=== PATIENT | female | born 1960 | race Caucasian/White ===

== ENCOUNTER 2022-04-25 08:54 | Outpatient (CLI) | payer MEDICARE, BC, SELFPAY ==
[2022-04-25 14:09] LABS: Hematocrit 40.3 % (33.0-51.0); Hemoglobin* 13.7 gm/dL (12.0-16.0); Mean Corpuscular HGB Conc 34 gm/dL (32-36); Mean Corpuscular Hemoglobin 31 pg (26-34); Mean Corpuscular Volume 91 fL (80-100); Platelet Count* 311 K/uL (140-440); Red Blood Count 4.42 m/uL (4.00-5.20); White Blood Count* 4.39 K/uL (4.50-11.00)
[2022-04-25 14:17] LABS: Slide Review Reflex No
[2022-04-25 14:31] LABS: Chloride* 105 mmol/L (96-114)
[2022-04-25 14:32] LABS: Sodium* 139 mmol/L (135-149)
[2022-04-25 14:34] LABS: Blood Urea Nitrogen* 20 mg/dL (7-30); Carbon Dioxide* 27 mmol/L (20-32); Cholesterol* 149 mg/dL (90-199); Creatinine* 0.9 mg/dL (0.5-1.5); Estimated Glomerular Filt Rate 72 ml/min
[2022-04-25 14:35] LABS: Calcium* 9.1 mg/dL (8.4-10.6); Glucose* 100 mg/dL (60-115); HDL Cholesterol* 77 mg/dL (>=50); LDL Cholesterol Calculated 62 mg/dL (<100); Triglycerides* 49 mg/dL (40-149)
[2022-04-25 15:07] LABS: Vitamin D 25 Hydroxy* 62 ng/mL (30-80)
== END 2022-04-25 08:55 | disposition home or self-care (01) ==
PROVIDERS: PCP Family Medicine; Visit Provider Family Medicine
DX: E55.9 Vitamin D deficiency, unspecified (principal); E78.5 Hyperlipidemia, unspecified; R60.9 Edema, unspecified
CPT/HCPCS: 80048; 80061; 82306; 85027

== ENCOUNTER 2023-06-10 08:56 | Outpatient (CLI) | payer MEDICARE, BC, SELFPAY | END 2023-06-10 08:57 | disposition home or self-care (01) | PROVIDERS: PCP Family Medicine; Visit Provider Family Medicine | DX: E55.9 Vitamin D deficiency, unspecified (principal); R60.9 Edema, unspecified; Z13.6 Encounter for screening for cardiovascular disorders | CPT/HCPCS: 80048; 80061; 85025 ==

== ENCOUNTER 2023-09-09 10:02 | Outpatient (CLI) | payer MEDICARE, BC, SELFPAY ==
--- NOTE | 2023-09-09 10:15 | CRLHL7_ITS ---
For Patients: As a result of the Century Cures Act, medical imaging exams and procedure reports are released immediately into your electronic medical record. You may view this report before your referring provider. If you have questions, please contact your health care provider. BILATERAL SCREENING MAMMOGRAM WITH COMPUTER-AIDED DETECTION AND TOMOSYNTHESIS TECHNIQUE: CC and MLO views were obtained. These mammographic images have been obtained using full-field digital technique. These mammographic images were interpreted with the benefit of computer-aided detection. Breast Tomosynthesis was used in this interpretation. COMPARISON FILM: 09/11/21, 04/21/19, 04/17/18. FINDINGS: The breasts are heterogeneously dense, which may obscure small masses IMPRESSION: There is no radiographic evidence for malignancy. ASSESSMENT: BI-RADS Category 1: Negative RECOMMENDATION: Routine screening mammogram in 1 year. A lay language report of this examination will be provided to the patient. Stefan Gay M.D. Diagnostic Radiologist [email or web address] DINAH/dimitri / be/Dictated by: Stefan Gay MD @ 09/09/2023 12:33:00 PM (Electronically Signed)
== END 2023-09-09 10:03 | disposition home or self-care (01) ==
PROVIDERS: PCP Family Medicine; Visit Provider Family Medicine
DX: Z12.31 Encounter for screening mammogram for malignant neoplasm of breast (principal); R92.2 Inconclusive mammogram
CPT/HCPCS: 77063; 77067

== ENCOUNTER 2024-06-11 10:16 | Outpatient (CLI) | payer MEDICARE, BC, SELFPAY ==
--- OUTSIDE RECORDS SUMMARY | 2024-06-11 10:26 | XMS_ITS | Clinical Summary ---
Author Organization [facility] Address [place], [place] [address] Care Team Providers Care Payment Collector Name Role Phone Stefan De La Garza MD Primary Care Provider + Allergies Active Allergy Reactions Criticality Noted Date Comments Iodinated Contrast Media Nausea And Vomiting Medium 06/01/2007 During cancer treatment pt had excessive amounts of dye and began vomitting. Penicillins Rash 08/31/2005 Medications Medication Sig Dispensed Refills Start Date End Date Status POLYETHYLENE GLYCOL 3350 17 GRAM ORAL POWDER PACKET 1 TAKE 17GM IN 8OZ WATER DAILY 1 3 06/01/2009 Active multivitamin (MVI) tablet Take 1 tablet by mouth once daily. Active fluticasone (50 mcg per actuation) nasal solution (FLONASE)Indications: Acute maxillary sinusitis, unspecified INHALE 2 SPRAYS INTO BOTH NOSTRILS ONCE DAILY 16 g 2 07/15/2018 Active albuterol HFA (PROAIR HFA) 90 mcg/actuation inhalerIndications:Re active airway disease, mild intermittent, with acute exacerbation Inhale 2 Puffs by mouth 4 times daily. 1 Inhaler 5 11/26/2018 Active inhalational spacing deviceIndications:Inf luenza A For home use. 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 Pelvic Exoneration, Ileal Bladder, Chemo, XRT Recurrent Small Bowel Obstuction 12/14/2006 Family history of colon cancer Resolved Problems Problem Noted Date Diagnosed Date Resolved Date UTI (lower urinary tract infection) 05/14/2014 12/11/2015 SBO (small bowel obstruction) 05/12/2014 12/11/2015 Cholecystitis chronic 09/13/20122012 SBO (small bowel obstruction) 09/11/2012 09/11/2012 Counseling for marital and p artner problems, unspecified 09/29/2007 08/02/2013 Counseling for parent-child problem, unspecified 09/29/2007 08/02/2013 Sepsis(995.91) 06/06/2007 08/02/2013 Overview (06/06/2007): secondary to pneumonia +- uti Urinary tract infection, site not specified 06/03/2007 08/02/2013 Constipation 12/14/2006 12/11/2015 Peripheral Neuropathy due to Chemo 12/14/2006 12/11/2015 Edema 12/12/2006 08/02/2013 Overview (12/12/2006): Peripheral Immunizations Name Administration Dates Next Due Influenza, IIV3 (Age >=3 years) 07/14/2013 Tdap 07/14/2013 Family History Medical History Relation Name Comments Cancer Brother 2 Jonathan Lung Alcohol/Drug Father Cancer-colon Father Heart Disease Father Hypertension Father Arthritis Maternal Grandmother Stroke Maternal Grandmother Osteoporosis Mother Cancer-breast Sister Relation Name Status Comments Brother 1 Alive X3 Brother 2 Jonathan Brother 3 Alive Daughter Father Maternal Grandfather Maternal Grandmother Mother Alive Paternal Grandfather Paternal Grandmother Sister Alive X5 Son 1 Alive Son 2 Alive Social History Tobacco Use Types Packs/Day Years Used Date Smoking Tobacco: Never Smokeless Tobacco: Never Tobacco Cessation:Counseling Given: Yes Alcohol Use Standard Drinks/Week Comments Yes 0 (1 standard drink = 0.6 oz pur e alcohol) wine once a week PHQ-2 Answer Date Recorded PHQ-2 Score 0 11/29/2018 Sex and Gender Information Value Date Recorded Sex Assigned at Not on file Gender Identity Not on file Sexual Orientation Not on file Obstetrics History Para Term AB IAB SAB Ectopic Multiple Livin g Live Births 3 2 2 1 1 2 Date Outcome GA Total Labor Labor/2nd/3rd Weight Sex Type Anes PTL Melody A1 A5 Name Clin Term Term SAB Last Filed Vital Signs Vital Sign Reading Time Taken Comments Blood Pressure 108/58 11/28/2018 11:24 AM STABILIZER OPERATOR Pulse 78 11/28/2018 11:24 AM STABILIZER OPERATOR Temperature 36.9 ??C (98.5 ??F) 11/28/2018 11:[address] Respiratory Rate 16 11/28/2018 11:24 AM STABILIZER OPERATOR Oxygen Saturation 96% 11/28/2018 11:24 AM STABILIZER OPERATOR Inhaled Oxygen Concentration - - Weight 74.8 kg (165 lb) 11/28/2018 11:24 AM STABILIZER OPERATOR Height 172.7 cm (5' 8) 11/28/2018 11:24 AM STABILIZER OPERATOR Body Mass Index 25.09 11/28/2018 11:24 AM STABILIZER OPERATOR Plan of Treatment Health Maintenance Due Date Last Done Comments Zoster (shingles) series for age 50+ (1 of 2) 2008 BMI (ht and wt on same day) for age 18+ 11/29/2019 11/28/2018, 11/26/2018, 05/14/2018, Additional history exists Depression screening for age 12+ 11/29/2019 11/28/2018, 11/26/2018, 05/16/2018, Additional history exists Mammogram for age 45-75 04/21/2020 04/21/20 19, 04/24/2018, 04/17/2018, Additional history exists Lipids for age 45-75 12/08/2020 12/09/2015, 07/14/20 13 Tetanus booster 07/14/2023 07/14/2013 DEXA/DXA scan for age 65+ 2023 Pneumococcal series for age 65+ (1 of 1 - PCV) 2023 COVID-19 vaccine series ( - 2022-24 season) 2024 Influenza for age 65+ 05/31/2024 07/14/2013 Colonoscopy through age 75 06/27/2027 06/27/2017 HIV for age 15-65 Completed 07/11/2011 Hepatitis C screening for ag e 18-79 Completed 07/11/2011 Tdap Completed 07/14/2013 (Comp leted outside of [facility]), 07/14/2013 Procedures Procedure Name Priority Date/Time Associated Diagnosis Comments XR MAMMO BILAT SCREENING Routine 04/21/2019 1:09 PM CDT Breast screening, unspecified COLONOSCOPY 06/27/2017 9:08 AM CDT LIPID PANEL W REFLEX MEASURED LDL Routine 12/09/2015 9:32 AM CST Medicare annual wellness visit, subsequent ANTI HIV 1/2 Routine 07/11/2011 8:36 AM CDT Hx-cont/exps haz bdy fld ANTI HCV Routine 07/11/2011 8:36 AM CDT Hx-cont/exps haz bdy fld from Last 3 Months or Most Recently Relevant to Health Maintenance Results * XR MAMMO BILAT SCREENING (04/21/2019 1:09 PM CDT) Anatomical Region Laterality Modality BREASTS, Breast Left, Breast Right Bilateral Mammography Impressions 04/21/2019 3:47 PM CDT ??There is no radiographic evidence for malignancy. ??Recommend annual mammograms. A lay language report of this examination will be provided to the patient. MAMMOGRAM ASSESSMENT: ??ACR 1 Negative Narrative 04/21/2019 3:47 PM CDT XR MAMMO BILAT SCREENING [[id number]] CLINICAL HISTORY: ??This is an asymptomatic 58 y.o. patient. INDICATION FOR EXAM: Mammogram Screening. TECHNIQUE: CC & MLO views were obtained. ??This digital study was evaluated with the assistance of Computer-Aided Detection. COMPARISON FILM: Yes 04/17/18 [facility] FINDINGS: ??Mammographically, the breast tissue is heterogeneously dense, which could obscure detection of small masses. There are no dominant masses, suspicious micro calcifications or areas of architectural distortion. Stefan De La Garza MD MAMMO * COLONOSCOPY (06/27/2017 9:08 AM CDT) 06/27/2017 9:08 AM CDT Narrative Transcriptions Elliott Sylvester MD - 06/27/2017 10:05 AM CDT Patient Name: Wendy Camarillo Procedure Date: 06/27/2017 Gender: Female Date of : 1960 Admit Type: Ambulatory Procedure: Colonoscopy Proceduralist: Elliott Sylvester [facility] Referring MD: Eliot Wall Indications/Pre-Op Diagnosis: Family history of colon cancer in a first-degree relative Medications: Midazolam 5 mg IV, Fentanyl 100 microgramsIV Procedure Description: The patient had risks, benefits and alternatives explained to andgave informed consent. The patient had a stable cardiopulmonary status and judged an adequate candidate for conscious sedation. The colonoscope was passed through the anus and advanced to thececum, identified by appendiceal orifice and ileocecal valve. Thecolonoscopy was technically difficult and complex due to poor bowel prep and significant looping. The patient tolerated the procedure well. The quality of the bowel preparation was adequate to identify polyps 6 mm and larger in size. Complications: No immediate complications. Estimated Blood Loss & Specimen: Estimated blood loss: none. Specimen collected - None Findings: The perianal and digital rectal examinations were normal. The entire examined colon appeared normal on direct and retroflexion views. Impressions/Post-Op Diagnosis: - The entire examined colon is normal on direct and retroflexionviews. - No specimens collected. Recommendation: - Discharge patient to home. - Resume previous diet. - Continue present medications. - Repeat colonoscopy in 5 years for surveillance. Moderate Sedation: Moderate (conscious) sedation was administered by the endoscopy nurse and supervised by the endoscopist. The following parameters were monitored: oxygen saturation, heart rate, respiratory rate, adequacyof pulmonary ventilation and reponse to care. Please refer to the patient's medical record flowsheets for moderate sedation details. please see sedation report above. Sedation was given under thedirection of the endoscopist. Moderate (conscious) sedation was administered by the endoscopy nurse and supervised by the endoscopist. The following parameters were monitored: oxygen saturation, heart rate, blood pressure, andresponse to care. Total physician intraservice time was 43 minutes. Elliott Sylvester, 06/27/2017 10:05:46 AM This report has been signed electronically. Note Initiated On: 06/27/2017 9:08 AM Elliott Sylvester MD PROCEDURE ORD * LIPID PANEL W REFLEX MEASURED LDL (12/09/2015 9:32 AM STABILIZER OPERATOR) CHOLESTEROL,TOTAL 174 100 - 199 mg/dL 12/09/2015 10:52 AM [facility] TRIGLYCERIDES 38 <150 mg/dL 12/09/2015 10:52 AM [facility] HDL CHOLESTEROL 81 >40 mg/dL 12/09/2015 10:52 AM [facility] NON-HDL CHOLESTEROL 93 <145 mg/dl 12/09/2015 10:52 AM [facility] CHOL/HDL RATIO 2.15 <4.50 12/09/2015 10:52 AM [facility] LDL CHOLESTEROL 85 <=130 mg/dL 12/09/2015 10:52 AM [facility] PATIENT STATUS NOT GIVEN 12/09/2015 10:52 AM [facility] Blood specimen (specimen) BLOOD SPECIMEN / Unknown Venipuncture / Unknown 12/09/2015 9:32 AM STABILIZER OPERATOR 12/09/2015 9:32 AM STABILIZER OPERATOR Stefan De La Garza MD CHEMISTRY [facility] [address] [place] [address], * ANTI HCV (07/11/2011 8:36 AM CDT) ANTI HCV Non-reacti ve [facility] Blood specimen (specimen) BLOOD SPECIMEN / Unknown 07/11/2011 8:36 AM CDT 07/11/2011 8:25 AM CDT Stefan De La Garza MD SEND OUTS [facility] [place]NAL ZIP [address] [place] [id number] * ANTI HIV 1/2 (07/11/2011 8:36 AM CDT) [facility] BLOOD SPECIMEN / Unknown 07/11/2011 8:36 AM CDT 07/11/2011 8:25 AM CDT Stefan De La Garza MD SEND OUTS [facility] [place]NAL ZIP [address] [place] [id number] from Last 3 Months or Most Recently Relevant to Health Maintenance Insurance Payer Benefit Plan / Group Subscriber ID Effective Dates Phone Address Type MEDICARE PART A - HB USE ONLY MEDICARE PART A HB ONLY [id number] 2006-Presen t ATTN: CLAIMS [address] [facility] [place] [address] MEDICARE PART B - HB USE ONLY MEDICARE PART B HB ONLY [id number] 2006-Presen t ATTN: CLAIMS [address] [facility] [address] MEDICARE PART A - HB USE ONLY MEDICARE PART A HB ONLY [id number] 2006-Presen t ATTN: CLAIMS [address] [facility] [address] MEDICARE PART B - HB USE ONLY MEDICARE PART B HB ONLY [id number] 2006-Presen t ATTN: CLAIMS [address] [facility] [place] [address] [place]OSS [place] BLUE MR [place] ONLY [id number] 2016-Presen t [address] [address] [place] [address] [place] [id number] 2013-Presen t [address] [place] [address] BL[employer] [place]OSS [place] BLUE HB ONLY [id number] 2016-Presen t [address] [address] [place] [address] Advance Directives * Full Code (Latest Code Status on File) Date Activated Date Inactivated Comments 06/27/2017 7:34 AM 06/27/2017 1:00 PM * Full Code Date Activated Date Inactivated Comments 05/15/2014 5:23 PM 05/23/2014 9:32 PM * Full Code Date Activated Date Inactivated Comments 05/12/2014 3:28 PM 05/15/2014 4:33 PM * Full Code Date Activated Date Inactivated Comments 09/11/2012 5:16 PM 09/14/2012 6:20 PM * Full Code Date Activated Date Inactivated Comments 05/31/2007 10:15 PM 06/06/2007 4:45 PM Care Teams Payment Collector Relationship Specialty Start Date End Date Stefan De La Garza MD [address] [place] [id number] PCP - General 02/28/06
== END 2024-06-11 10:17 | disposition home or self-care (01) ==
LOC: FBOREF 10:17
PROVIDERS: PCP Family Medicine; Visit Provider Family Medicine
DX: R60.9 Edema, unspecified (principal)
CPT/HCPCS: 80048

== ENCOUNTER 2024-09-10 14:33 | Outpatient (CLI) | payer MEDICARE, BC, SELFPAY ==
--- NOTE | 2024-09-10 15:00 | CRLHL7_ITS ---
For Patients: As a result of the Century Cures Act, medical imaging exams and procedure reports are released immediately into your electronic medical record. You may view this report before your referring provider. If you have questions, please contact your health care provider. BILATERAL SCREENING MAMMOGRAM WITH COMPUTER-AIDED DETECTION AND TOMOSYNTHESIS TECHNIQUE: CC and MLO views were obtained. These mammographic images have been obtained using full-field digital technique. These mammographic images were interpreted with the benefit of computer-aided detection. Breast Tomosynthesis was used in this interpretation. Patient is tender all over, does not tolerate compression well. COMPARISON FILM: 09/09/23, 09/11/21, 04/21/19. FINDINGS: The breasts are heterogeneously dense, which may obscure small masses. IMPRESSION: There is no radiographic evidence for malignancy. ASSESSMENT: BI-RADS Category 1: Negative RECOMMENDATION: Routine screening mammogram in 1 year. A lay language report of this examination will be provided to the patient. Stefan Gay M.D. Diagnostic Radiologist [email or web address] SP/Dictated by: Stefan Gay MD @ 09/11/2024 10:23:00 AM (Electronically Signed)
== END 2024-09-10 14:34 | disposition home or self-care (01) ==
LOC: MAMMO 14:35
PROVIDERS: PCP Family Medicine; Visit Provider Family Medicine
DX: Z12.31 Encounter for screening mammogram for malignant neoplasm of breast (principal); R92.333 Mammographic heterogeneous density, bilateral breasts
CPT/HCPCS: 77063; 77067

== ENCOUNTER 2025-06-09 09:28 | Outpatient (CLI) | payer MEDICARE, BC, SELFPAY | END 2025-06-09 09:29 | disposition home or self-care (01) | PROVIDERS: PCP Family Medicine; Visit Provider Family Medicine | DX: R60.9 Edema, unspecified (principal) | CPT/HCPCS: 80048; 85025 ==

== ENCOUNTER 2025-08-18 15:20 | Outpatient (CLI) | payer MEDICARE, BC, SELFPAY ==
--- NOTE | 2025-08-18 15:30 | CRLHL7_ITS ---
For Patients: As a result of the Century Cures Act, medical imaging exams and procedure reports are released immediately into your electronic medical record. You may view this report before your referring provider. If you have questions, please contact your health care provider. XR DXA Bone Mineral Density (BMD) Reason for exam: Asymptomatic menopausal state. Current height (in): 68.5. Weight (lb): 156.0. Menopause age: 43. Ethnicity: White. 1. Have you had a previous hip or vertebral fracture? No. 2. Have you had any fractures during your adult life which did not result from significant trauma (e.g., auto accident)? Yes. 3. Did either of your parents have a hip fracture? No. 4. Do you smoke? No. 5. Have you ever taken Glucocorticoids? Yes. 6. Do you have rheumatoid arthritis? No. 7. Do you have secondary osteoporosis? No. 8. Do you drink 3 or more alcoholic drinks per day? No. 9. Are you being treated for osteoporosis? No. 10. Have you ever taken any of the following medications: Actonel, Evista, Fosamax, Miacalcin, Reclast, Boniva, Forteo, HRT (i.e. estrogen/hormone therapy), Protelos, Prolia, Vitamin D, Calcium, other ??? please specify. ANSWER: Yes, vitamin D, calcium, hormone replacement therapy. 11. Do you have any of the following medical conditions: Anorexia or bulimia, asthma or emphysema, end stage renal disease, hyperparathyroidism, any seizure disorders, cancer, inflammatory bowel diseases, hysterectomy, other ??? please specify. ANSWER: Yes, cancer, hysterectomy. 12. What was your maximum height (inches)? 69. 13. Do you perform weight bearing exercise regularly? No. 14. Do you regularly consume dairy products? Yes. 15. Do you drink caffeinated beverages? Yes. 16. At what age did your period start? 11. 17. Are you premenopausal? No. 18. How many full term pregnancies have you had? 2. 19. Have you ever missed your period for more than 6 months in a row (not including or menopause)? No. TECHNIQUE: Bone mineral density study was performed using the Ifby[employer]. FINDINGS: The results of the study expressed as bone mineral density (BMD) are as follows: Lumbar spine L1 to L4: BMD: 0.927 g/cm2. T-score: -1.1. Z-score: 0.8. Neck Left: BMD: 0.777 g/cm2. T-score: -0.6. Z-score: 1.0. Right: BMD: 0.759 g/cm2. T-score: -0.8. Z-score: 0.8. Total Left: BMD: 0.963 g/cm2. T-score: 0.2. Z-score: 1.5. Right: BMD: 0.941 g/cm2. T-score: -0.0. Z-score: 1.3. IMPRESSION: Osteopenia. FRAX 10-year Fracture Risk Major Osteoporotic Fracture: 20 percent Hip Fracture: 1.7 percent Reported Risk Factors: [place] () Neck BMD=0.759, BMI=23.4, previous fracture, glucocorticoids Mitra Blankenship M.D. Diagnostic Radiologist [email or web address] KATIE/pilo / bM/Dictated by: Mitra Blankenship MD @ 08/18/2025 6:02:00 PM (Electronically Signed)
== END 2025-08-18 15:21 | disposition home or self-care (01) ==
LOC: RAD 15:21
PROVIDERS: PCP Family Medicine; Visit Provider Family Medicine
DX: Z78.0 Asymptomatic menopausal state (principal); M85.89 Other specified disorders of bone density and structure, multiple sites
CPT/HCPCS: 77080